=== PATIENT | male | born 1940 | race Caucasian/White ===

== ENCOUNTER 2023-07-23 11:53 | Observation (INO) | payer OTHER ==
[~2023-07-23] VITALS: Ht 170.2 cm; Wt 81.6 kg
[2023-07-23 11:58] VITALS: BP 151/87; PULSE 80; RESP 18; O2SAT 91
[2023-07-23 12:15] VITALS: O2SAT 91
[2023-07-23] MEDS ORDERED: LIDOCAINE MPF 1% 10 MG/ML VIAL INJ ONE ×2 (12:20→14:00)
[2023-07-23 14:26] LABS: BASOPHILS % (AUTO) 0.1 % (0.0-2.0); EOSINOPHILS % (AUTO) 0.4 % (0.0-4.0); HEMATOCRIT 54.6 % (36-52); HEMOGLOBIN 17.8 g/dL (12.0-18.0); LYMPHOCYTES % (AUTO) 8.6 % (20.5-51.1); MEAN CORPUSCULAR HEMOGLOBIN 31 pg (27-31); MEAN CORPUSCULAR HGB CONC 33 g/dL (33-37); MEAN CORPUSCULAR VOLUME 93.7 fL (80-94); MONOCYTES # (AUTO) 0.8 K/uL (0.8-1.0); MONOCYTES % (AUTO) 6.8 % (1.7-9.3); NEUTROPHILS # (AUTO) 10.2 K/uL (1.8-7.7); NEUTROPHILS % (AUTO) 84.1 % (42.2-75.2); PLATELET COUNT (AUTO) 133 K/uL (140-450); RED BLOOD CELL COUNT(AUTO) 5.82 MIL/uL (4.20-6.10); RED CELL DISTRIBUTION WIDTH 14.2 % (11.6-13.7); WHITE BLOOD COUNT (AUTO) 12.1 K/uL (4.8-10.8)
[2023-07-23 14:45] LABS: ALANINE AMINOTRANSFERASE 20 U/L (12-78); ALBUMIN 3.8 g/dL (3.4-5.0); ALKALINE PHOSPHATASE 55 U/L (50-136); ANION GAP 11.9 (8-16); ASPARTATE AMINOTRANSFERASE 19 U/L (15-37); CALCIUM 8.9 mg/dL (8.5-10.1); CARBON DIOXIDE 30.6 mmol/L (21-32); CHLORIDE 104 mmol/L (98-107); GLUCOSE 119 mg/dL (74-106); POTASSIUM 4.5 mmol/L (3.5-5.1); SODIUM SERUM 142 mmol/L (136-145); TOTAL BILIRUBIN 0.7 mg/dL (0.0-1.0); UREA NITROGEN, BLOOD 13 mg/dL (7-18)
[2023-07-23 14:48] VITALS: O2SAT 93
[2023-07-23] MEDS ORDERED: DILTIAZEM 25 MG/5 ML VIAL IVP ONE ×2 (14:50→17:55)
[2023-07-23] MEDS ORDERED: DILTIAZEM 30 MG TAB PO ONE (17:55)
[2023-07-23 18:37] VITALS: BP 133/90; PULSE 88; RESP 20; TEMP 98
[2023-07-23 20:51] VITALS: O2SAT 92
[2023-07-23] MEDS ORDERED: METOPROLOL 25 MG TAB PO SCH (21:00)
== END 2023-07-23 21:30 | disposition left against medical advice (07) ==
LOC: MED 11:53 → MTU 20:16
PROVIDERS: ADMIT Family Medicine; ATTEND Family Medicine
DX: S01.511A Laceration without foreign body of lip, initial encounter (principal); S01.512A Laceration without foreign body of oral cavity, initial encounter; S09.90XA Unspecified injury of head, initial encounter; R07.89 Other chest pain; I48.91 Unspecified atrial fibrillation; W19.XXXA Unspecified fall, initial encounter; Y93.89 Activity, other specified; Y92.89 Other specified places as the place of occurrence of the external cause; Y99.8 Other external cause status; Z79.899 Other long term (current) drug therapy
CPT/HCPCS: 12013; 36415; 70450; 71101; 71275; 80053; 83880; 84484; 85025; 85379; 93005; 96374; 96376; 99285; G0378; G0482; J2001; J3490; Q9967